=== PATIENT | female | born 1945 | race Caucasian/White ===

== ENCOUNTER → 2018-09-06 | Outpatient (CLI) | payer MEDICARE, OTHER ==
[~2018-09-06] MED LIST: ADVIL200 M1 PO; DILAUDID2 MG PO; LIDOCAINE PATCH 5% TD; RANITIDINE HCL150 M1 PO; ROBAXIN-750750 MG PO; TIZANIDINE HCL4 MG PO; TYLENOL # 31 EA PO; ULTRAM 50MG50 MG PO
[2018-09-06 13:00] LABS: BASOPHILS # (AUTO) 0.1 (0.0-0.1); EOSINOPHILS # (AUTO) 0.1 (0.0-0.4); EOSINOPHILS % 1.6 % (0.0-6.0); HEMATOCRIT 43.7 % (34.2-44.1); HEMOGLOBIN 14.4 g/dL (12.0-16.0); LYMPHOCYTES # (AUTO) 1.9 (1.0-3.2); LYMPHOCYTES % 31.6 % (18.0-39.1); MEAN CORPUSCULAR HEMOGLOBIN 32.8 pg (28-32); MEAN CORPUSCULAR VOLUME 99.5 fL (81-99); MONOCYTES # (AUTO) 0.6 (0.2-0.8); MONOCYTES % 10.3 % (4.4-11.3); NEUTROPHILS # (AUTO) 3.4 (2.1-6.9); NEUTROPHILS % 55.3 % (38.7-80.0); PLATELET COUNT 237 x10e3/uL (140-360); RED BLOOD COUNT 4.39 x10e6/uL (3.6-5.1); RED CELL DISTRIBUTION WIDTH 12.3 % (11.7-14.4)
[2018-09-06 13:40] LABS: THYROID STIMULATING HORMONE 1.364 uIU/mL (0.350-4.940)
== END ==
LOC: LAB 12:34
PROVIDERS: ATTEND General Practice
DX: R53.83 Other fatigue (principal)
CPT/HCPCS: 36415; 82947; 84443; 85025

== ENCOUNTER → 2018-09-17 | Outpatient (CLI) | payer MEDICARE, OTHER ==
--- NOTE | 2018-09-17 13:33 | Diagnostic Imaging Report ---
EXAMINATION: PA and lateral views of the chest. COMPARISON: None CLINICAL HISTORY: Cough, congestion DISCUSSION: The lungs are hyperinflated with increased AP diameter of the chest. No consolidation, pleural effusion, or pneumothorax. Questionable subcentimeter nodule in the right upper lung superimposed over the posterior fifth rib. Cardiomediastinal contour and pulmonary vasculature are within normal limits. No acute osseous abnormality. Right upper quadrant surgical clips likely reflect prior cholecystectomy. IMPRESSION: No acute cardiopulmonary abnormality. Hyperinflated lungs compatible with COPD/emphysema. Subcentimeter suprahilar right pulmonary nodular opacity may represent summation of vascular and osseous structures. In the absence of prior right chest radiograph for comparison purposes, a short-term follow-up chest radiograph (1-2 months) is suggested to assess for stability. Signed by: Dr. Mario Alberto Lam M.D. on 09/17/2018 1:30 PM
== END ==
LOC: RAD 12:45
DX: R09.89 Other specified symptoms and signs involving the circulatory and respiratory systems (principal)
CPT/HCPCS: 71046

== ENCOUNTER → 2018-10-07 | Outpatient (CLI) | payer MEDICARE, OTHER ==
[2018-10-07 13:00] LABS: BASOPHILS # (AUTO) 0.1 (0.0-0.1); BASOPHILS % 0.7 % (0.0-1.0); EOSINOPHILS # (AUTO) 0.1 (0.0-0.4); EOSINOPHILS % 1.6 % (0.0-6.0); HEMATOCRIT 41.7 % (34.2-44.1); HEMOGLOBIN 13.5 g/dL (12.0-16.0); LYMPHOCYTES # (AUTO) 1.9 (1.0-3.2); LYMPHOCYTES % 28.2 % (18.0-39.1); MEAN CORPUSCULAR HEMOGLOBIN 33.4 pg (28-32); MEAN CORPUSCULAR HGB CONC 32.4 g/dL (31-35); MEAN CORPUSCULAR VOLUME 103.2 fL (81-99); MONOCYTES # (AUTO) 0.6 (0.2-0.8); MONOCYTES % 9.2 % (4.4-11.3); NEUTROPHILS # (AUTO) 4.1 (2.1-6.9); PLATELET COUNT 224 x10e3/uL (140-360); RED BLOOD COUNT 4.04 x10e6/uL (3.6-5.1); RED CELL DISTRIBUTION WIDTH 12.7 % (11.7-14.4)
[2018-10-07 13:13] LABS: INR 0.87; PROTHROMBIN TIME 12.6 seconds (11.9-14.5)
[2018-10-07 13:14] LABS: PARTIAL THROMBOPLASTIN TIME 27.5 seconds (23.8-35.5)
[2018-10-07 13:21] LABS: ALANINE AMINOTRANSFERASE 17 IU/L (0-55); ALBUMIN 4.5 g/dL (3.5-5.0); ALBUMIN/GLOBULIN RATIO 1.4 (0.8-2.0); ALKALINE PHOSPHATASE 45 IU/L (40-150); ANION GAP 16.7 mmol/L (8-16); BLOOD UREA NITROGEN 12 mg/dL (7-26); BUN/CREATININE RATIO 15 (6-25); CALCIUM 9.9 mg/dL (8.4-10.2); CARBON DIOXIDE 25 mmol/L (22-29); CHLORIDE 104 mmol/L (98-107); CREATININE, SERUM 0.79 mg/dL (0.57-1.11); EST GLOMERULAR FILTRATION RATE > 60 ML/MIN (60-); GLUCOSE 85 mg/dL (74-118); POTASSIUM 3.7 mmol/L (3.5-5.1); SODIUM 142 mmol/L (136-145)
[2018-10-07 14:00] LABS: HIV 1&2 AB SCREEN NON-REACTIVE (NONREACTIVE)
--- NOTE | 2018-10-07 16:14 | Diagnostic Imaging Report ---
EXAM: CT Chest without contrast 10/07/2018 12:15 AM INDICATION: Pulmonary nodule COMPARISON: 09/17/2018 chest x-ray TECHNIQUE: Chest was scanned utilizing a multidetector helical scanner from the lung apex through the level of the adrenal glands without administration of IV contrast. Coronal and sagittal reformations were obtained. Routine protocol was performed. IV CONTRAST: None RADIATION DOSE: Total DLP: 105.62 mGy*cm Estimated effective dose: (DLP x 0.014 x size factor) mSv COMPLICATIONS: None Dose reduction techniques used: Automated exposure control, adjustment of the mAs and/or kVp according to patient size, standardized low-dose protocol, and/or iterative reconstruction technique. FINDINGS: LINES/ TUBES: None. LUNGS AND AIRWAYS: The lungs are hyperexpanded. Airways are normal. There is a calcified left lower lobe granuloma. There are no suspicious appearing noncalcified pulmonary nodules. Apical scarring on the right. PLEURA: The pleural spaces are clear. HEART AND MEDIASTINUM: The thyroid gland is normal. No mediastinal, hilar or axillary lymphadenopathy. The heart is normal in size.. There is calcification within the aorta. There is a tiny pericardial effusion. UPPER ABDOMEN: Limited non-contrast views of the upper abdomen show no abnormality within the visualized liver, spleen, pancreas or kidneys. Calcification within the liver. The adrenal glands are normal. BONES: Schmorl's nodes of several lower thoracic spine vertebral bodies. SOFT TISSUES: Unremarkable. IMPRESSION: 1. Hyperexpansion of the lung machado without evidence of an acute significant abnormality. 2. No noncalcified pulmonary nodules or masses. 3. Tiny pericardial effusion. Signed by: Dr. Grzegorz Sim DO on 10/07/2018 4:11 PM
== END ==
LOC: RESP 10:05
PROVIDERS: ATTEND Internal Medicine Critical Care Medicine
DX: R09.02 Hypoxemia (principal); R06.00 Dyspnea, unspecified; R55 Syncope and collapse; R00.0 Tachycardia, unspecified; R91.1 Solitary pulmonary nodule
CPT/HCPCS: 36415; 71250; 80053; 84443; 85025; 85610; 85730; 86704; 87390; 87902; 93306; G0433; G0435

== ENCOUNTER → 2018-12-27 | Outpatient (CLI) | payer MEDICARE, OTHER ==
[2018-12-30 05:21] LABS: ALPHA-1-ANTITRYPSIN 139 mg/dL (90-200)
== END ==
LOC: LAB 14:10
PROVIDERS: ATTEND Internal Medicine Critical Care Medicine
DX: R06.00 Dyspnea, unspecified (principal); R55 Syncope and collapse; R91.1 Solitary pulmonary nodule; R00.0 Tachycardia, unspecified
CPT/HCPCS: 36415; 82103; 82785; 85651; 86039; 86431

== ENCOUNTER 2019-02-06 15:02 | Emergency (ER) | payer MEDICARE, OTHER ==
[~2019-02-06] VITALS: Ht 170.2 cm; Wt 77.6 kg
--- OUTSIDE RECORDS SUMMARY | 2019-02-06 15:06 | XMS REPORT ---
Author Author [facility] Address Unknown Phone Unavailable Care Team Providers [employer] Specialist Name Role Phone Cirilo DAVILA Unavailable Unavailable RANGEL PACHECO Unavailable Unavailable Becky HOLM Unavailable Unavailable Problems This patient has no known problems. Allergies, Adverse Reactions, Alerts This patient has no known allergies or adverse reactions. Medications This patient has no known medications. Results Test Description Test Time Test Comments Text Results Atomic Results Result Comments CT CHEST WO 2018-10-07 16:00:00 [place] [address] Patient Name: RAFI HELLER V MR #: [id number] : 1945 Age/Sex: 73/F Req #: [id number] Adm Physician: Ordered by: HILLARY DAVILA MD Report #: [id number] Location: [facility] Room/Bed: Procedure: [id number] CT/CT CHEST WO Exam Date: 10/07/18 Exam Time: 1200 REPORT STATUS: Signed EXAM: CT Chest without contrast 10/07/2018 12:15 AM INDICA TION: Pulmonary nodule COMPARISON: 09/17/2018 chest x-ray TECHNIQUE: Chest was scanned utilizing a multidetector helical scanner from the lung apex through the level of the adrenal glands without administration of IV contrast. Coronal and sagittal reformations were obtained. Routine protocol was performed. IV CONTRAST: None RADIATION DOSE: Total DLP: 105.62 mGy*cm Estimated effective dose: (DLP x 0.014 x size factor) mSv COMPLICATIONS: None Dose reduction techniques used: Automated exposure control, adjustment of the mAs and/or kVp according to patient size, standardized low-dose protocol, and/or iterative reconstruction technique. FINDINGS: LINES/ TUBES: None. LUNGS AND AIRWAYS: The lungs are hyperexpanded. Airways are normal. There is a calcified left lower lobe granuloma. There are no suspicious appearing noncalcified pulmonary nodules. Apical scarring on the right. PLEURA: The pleural spaces are clear. HEART AND MEDIASTINUM: The thyroid gland is normal. No mediastinal, hilar or axillary lymphadenopathy. The heart is normal in size.. There is calcification within the aorta. There is a tiny pericardial effusion. UPPER ABDOMEN: Limited non-contrast views of the upper abdomen show no abnormality within the visualized liver, spleen, pancreas or kidneys. Calcification within the liver. The adrenal glands are normal. BONES: Schmorl's nodes of several lower thoracic spine vertebral bodies. SOFT TISSUES: Unremarkable. IMPRESSION: 1. Hyperexpansion of the lung machado without evidence of an acute significant abnormality. 2. No noncalcified pulmonary nodules or masses. 3. Tiny pericardial effusion. Signed by: Dr. Kwame Sim DO on 10/07/2018 4:11 PM Dictated By: KWAME SIM DO 1611 Transcribed By: AMOL on 10/07/18 1611 COPY TO: HILLARY DAVILA MD, [facility] CHEST 2 VIEWS 2018-09-17 13:27:00 [place] [address] Patient Name: RAFI HELLER V MR #: [id number] : 1945 Age/Sex: 72/F Req #: [id number] Adm Physician: Ordered by: RANGEL PACHECO MD Report #: [id number] Location: [facility] Room/Bed: Procedure: [id number] DX/CHEST 2 VIEWS Exam Date: 09/17/18 Exam Time: 1310 REPORT STATUS: Signed EXAMINATION: PA and lateral views of the chest. C OMPARISON: None CLINICAL HISTORY: Cough, congestion DISCUSSION: The lungs are hyperinflated with increased AP diameter of the chest. No consolidation, pleural effusion, or pneumothorax. Questionable subcentimeter nodule in the right upper lung superimposed over the posterior fifth rib. Cardiomediastinal contour and pulmonary vasculature are within normal limits. No acute osseous abnormality. Right upper quadrant surgical clips likely reflect prior cholecystectomy. IMPRESSION: No acute cardiopulmonary abnormality. Hyperinflated lungs compatible with COPD/emphysema. Subcentimeter suprahilar right pulmonary nodular opacity may represent summation of vascular and osseous structures. In the absence of prior right chest radiograph for comparison purposes, a short-term follow-up chest radiograph (1-2 months) is suggested to assess for stability. Signed by: Dr. Ashley Levine M.D. on 09/17/2018 1:30 PM Dictated By: ASHLEY LEVINE MD 133 Transcribed By: AMOL on 09/17/18 1330 COPY TO: RANGEL PACHECO MD CHEST 2 VIEWS [place] [address] Patient Name: RAFI HELLER V MR #: [id number] : 1945 Age/Sex: 71/F Req #: [id number] Adm Physician: Ordered by: DALLIN HOLM Report #: [id number] Location: [facility] Room/Bed: Procedure: [id number] DX/CHEST 2 VIEWS Exam Date: 07/18/17 Exam Time: 1230 REPORT STATUS: Signed PROCEDURE: Frontal and lateral views of the chest. COMPARISON: [facility], DX, CHEST SINGLE (NOT PORTABLE), 09/18/2016, 8:34. INDICATIONS: BRONCHITIS FINDINGS: Lines/tubes: None. Lungs: The lungs are mildly hyperinflated. There is no evidence of pneumonia or pulmonary edema. Pleura: There is no pleural effusion or pneumothorax. Heart and mediastinum: The heart and the mediastinum are normal. Bones: No acute bony abnormality. IMPRESSION: 1. Bilateral hyperinflation again observed. No acute thoracic abnormality. Case Head M.D. Dictated by: Case Head M.D. on 07/18/2017 at 13:04 Electronically approved by: Case Head M.D. on 07/18/2017 at 13:04 Dictated By: MAXX HEAD MD, MD 1304 Transcribed By: BANG on 07/18/17 1304 COPY TO: DALLIN HOLM
[2019-02-06] MEDS ORDERED: TRAMADOL HCL 50 MG TAB PO ONE (15:30)
--- NOTE | 2019-02-06 16:17 | Diagnostic Imaging Report ---
Exam: Right small finger radiographs-3 views. History: Status post trauma, evaluate for fracture. Comparison: None. Findings: No evidence of acute fracture or malalignment. Mild soft tissue edema within the right small finger. Impression: Mild soft tissue edema in the right small finger without evidence of acute fracture or malalignment. Signed by: Dr. Blayne Doyle MD on 02/06/2019 4:14 PM
[2019-02-06 16:22] VITALS: BP 153/87
== END 2019-02-06 16:38 | disposition home or self-care (01) ==
LOC: ER 15:02
DX: S60.051A Contusion of right little finger without damage to nail, initial encounter (principal); W22.8XXA Striking against or struck by other objects, initial encounter; Y93.43 Activity, gymnastics
CPT/HCPCS: 99283

== ENCOUNTER → 2019-06-30 | Outpatient (CLI) | payer MEDICARE, OTHER ==
[2019-07-02 05:25] LABS: ALPHA-1-ANTITRYPSIN 147 mg/dL (90-200)
== END ==
LOC: LAB 11:18
PROVIDERS: ATTEND Internal Medicine Critical Care Medicine
DX: R09.02 Hypoxemia (principal); R06.00 Dyspnea, unspecified; R00.0 Tachycardia, unspecified; J47.9 Bronchiectasis, uncomplicated; R55 Syncope and collapse; R91.1 Solitary pulmonary nodule; F17.200 Nicotine dependence, unspecified, uncomplicated
CPT/HCPCS: 36415; 82103; 85651; 86039; 86431

== ENCOUNTER → 2024-05-06 | Outpatient (REF) | payer MEDICARE, OTHER ==
[2024-05-06 13:26] LABS: BASOPHILS # (AUTO) 0.1 (0.0-0.1); EOSINOPHILS # (AUTO) 0.1 (0.0-0.4); EOSINOPHILS % 1.9 % (0.0-6.0); HEMATOCRIT 43.4 % (34.2-44.1); HEMOGLOBIN 13.8 g/dL (12.0-16.0); LYMPHOCYTES # (AUTO) 1.1 (1.0-3.2); MEAN CORPUSCULAR HEMOGLOBIN 33.1 pg (28-32); MEAN CORPUSCULAR HGB CONC 31.8 g/dL (31-35); MEAN CORPUSCULAR VOLUME 104.1 fL (81-99); MONOCYTES % 18.3 % (4.4-11.3); NEUTROPHILS # (AUTO) 2.9 (2.1-6.9); NEUTROPHILS % 56.6 % (38.7-80.0); PLATELET COUNT 203 x10e3/uL (140-360); RED BLOOD COUNT 4.17 x10e6/uL (3.6-5.1); WHITE BLOOD COUNT 5.19 x10e3/uL (4.8-10.8)
[2024-05-06 14:04] LABS: ALBUMIN 4.2 g/dL (3.5-5.0); ALBUMIN/GLOBULIN RATIO 1.2 (0.8-2.0); ANION GAP 14.5 mmol/L (8-16); BILIRUBIN,TOTAL 0.9 mg/dL (0.2-1.2); CALCIUM 9.8 mg/dL (8.4-10.2); CREATININE, SERUM 0.92 mg/dL (0.57-1.11); TOTAL PROTEIN 7.6 g/dL (6.5-8.1)
[2024-05-06 14:05] LABS: POTASSIUM 5.5 mmol/L (3.5-5.1)
== END ==
LOC: RESP 12:34 → EDSTATUS 13:00
PROVIDERS: ATTEND Internal Medicine Critical Care Medicine
DX: R06.02 Shortness of breath (principal); J47.9 Bronchiectasis, uncomplicated; J44.9 Chronic obstructive pulmonary disease, unspecified; J43.9 Emphysema, unspecified; J30.9 Allergic rhinitis, unspecified; R05.3 Chronic cough; R53.83 Other fatigue; Z68.1 Body mass index [BMI] 19.9 or less, adult; F17.210 Nicotine dependence, cigarettes, uncomplicated
CPT/HCPCS: 36415; 80053; 85025; 94060; 94727; 94729

== ENCOUNTER → 2025-03-25 | Outpatient (REF) | payer MEDICARE, OTHER | LOC: RAD 14:50 | PROVIDERS: ATTEND Nurse Practitioner Family | DX: J44.1 Chronic obstructive pulmonary disease with (acute) exacerbation (principal); J44.9 Chronic obstructive pulmonary disease, unspecified; F17.210 Nicotine dependence, cigarettes, uncomplicated | CPT/HCPCS: 71046 ==

== ENCOUNTER → 2025-06-05 | Outpatient (REF) | payer MEDICARE, OTHER | LOC: CT 16:12 | PROVIDERS: ATTEND Nurse Practitioner Family | DX: F17.210 Nicotine dependence, cigarettes, uncomplicated (principal) | CPT/HCPCS: 71250 ==